=== PATIENT | female | born 1960 ===

== ENCOUNTER 2016-07-01 14:13 | Outpatient (CLI) | payer BC | END 2016-07-01 14:14 | disposition home or self-care (01) | LOC: LABLEX 14:13 | PROVIDERS: ATTEND Family Medicine | DX: T63.301A Toxic effect of unspecified spider venom, accidental (unintentional), initial encounter (principal); L03.90 Cellulitis, unspecified | CPT/HCPCS: 87070; 87205 ==

== ENCOUNTER 2016-09-04 14:52 | Outpatient (CLI) | payer BC | END 2016-09-04 14:53 | LOC: LABLEX 14:52 | PROVIDERS: ATTEND Family Medicine | DX: R82.90 Unspecified abnormal findings in urine (principal) | CPT/HCPCS: 87086 ==

== ENCOUNTER 2017-01-01 11:51 | Outpatient (CLI) | payer BC | END 2017-01-01 11:52 | disposition home or self-care (01) | LOC: LABLEX 11:51 | PROVIDERS: ATTEND Nurse Practitioner Family | DX: R30.0 Dysuria (principal) | CPT/HCPCS: 87086 ==